=== PATIENT | female | born 1980 ===

== ENCOUNTER 2024-06-24 11:15 | Inpatient (IN) | payer OTHER ==
[~2024-06-24] VITALS: Ht 149.9 cm; Wt 49.9 kg
[2024-06-24 13:59] VITALS: BP 105/68
[2024-06-24] MEDS ORDERED: LEXAPRO 10 MG (14:20)
[2024-06-24] MEDS ORDERED: HYDROXYZINE PAMOATE 25 MG (14:21)
[2024-06-24] MEDS ORDERED: DUCOLAX (14:21)
[2024-06-24] MEDS ORDERED: [UNRECOGNIZED DRUG - REMARK] (14:21)
[2024-06-24 14:22] VITALS: BP 104/70
[2024-06-30] MEDS ORDERED: POVIDONE-IODINE 118 ML BOTT TOP ONE (12:23)
[2024-06-30] MEDS ORDERED: CEFAZOLIN SODIUM 1,000 MG VIAL ONE (12:24)
[2024-06-30] MEDS ORDERED: MORPHINE SULFATE 4 MG/ML VIAL IV ONE (17:35)
[2024-06-30] MEDS ORDERED: MEPERIDINE HCL/PF 50 MG/ML VIAL IV SCH (18:12)
[2024-06-30] MEDS ORDERED: PROMETHAZINE HCL 25 MG/ML AMPUL IV SCH (18:14)
[2024-06-30 20:09] LABS: HEMATOCRIT 33.7 % (36.0-45.00); MEAN CELL VOLUME 86.8 fL (80.00-100.00); MEAN CORPUSCULAR HEMOGLOBIN 28.3 pg (27.00-32.0); MEAN CORPUSCULAR HGB CONC 32.6 g/dl (32.0-36.0); PLATELET COUNT 250 K/uL (150-450); RED BLOOD COUNT 3.88 M/uL (4.00-6.00); RED CELL DISTRIBUTION WIDTH 14.2 % (11.5-14.5)
[2024-06-30 20:15] VITALS: BP 103/69
[2024-06-30 23:29] VITALS: BP 96/55
[2024-07-01 04:30] VITALS: BP 100/64
[2024-07-01 08:00] VITALS: BP 106/66
[2024-07-01] MEDS ORDERED: OxyCODONE HCL/APAP UD (PERCOCET) PO SCH (08:00)
[2024-07-01] MEDS ORDERED: IBUprofen 800 MG TABLET PO SCH (13:00)
[2024-07-01 16:32] VITALS: BP 95/60
[2024-07-01 20:53] VITALS: BP 97/61
[2024-07-01 23:37] VITALS: BP 91/64
[2024-07-02 07:54] VITALS: BP 95/63
[2024-07-02 16:25] VITALS: BP 105/68
== END 2024-07-02 18:12 | disposition home or self-care (01) | DRG 743 ==
LOC: SURH 06-30 11:15 → O/R 06-30 11:34 → OB/GYN 06-30 11:34
PROVIDERS: ADMIT Obstetrics & Gynecology Obstetrics; ATTEND Obstetrics & Gynecology Obstetrics
PROC: 0UT70ZZ Resection of Bilateral Fallopian Tubes, Open Approach (ICD-10-PCS; 2024-06-30)
PROC: 0UT90ZZ Resection of Uterus, Open Approach (ICD-10-PCS; principal; 2024-06-30 14:30)
DX: D25.1 Intramural leiomyoma of uterus (principal)